=== PATIENT | female | born 1985 | race Caucasian/White ===

== ENCOUNTER 2020-08-26 15:26 | Emergency (ER) | payer BC, OTHER ==
[2020-08-26 21:10] LABS: HEMOGLOBIN 15.3 gm/dl (12.3-15.3); RED BLOOD COUNT 4.96 M/UL (4.00-5.10); WHITE BLOOD COUNT 9.8 K/UL (4.5-11.0)
[2020-08-26 22:17] LABS: BUN/CREATININE RATIO 16 (0-10)
[2020-08-26] MEDS ORDERED: IBUPROFEN600 MG PO (23:58)
[2020-08-26] MEDS ORDERED: BACTRIM DS TAB1 EACH PO (23:58)
[2020-08-26] MEDS ORDERED: CEPHALEXIN500 MG PO (23:58)
[2020-08-28] MEDS ORDERED: CIPRO500 MG PO (11:44)
[2020-08-28] MEDS ORDERED: DIFLUCAN150 MG PO (11:45)
== END 2020-08-27 00:38 | disposition home or self-care (01) ==
LOC: ER1 15:26
PROVIDERS: Emergency Medicine
DX: M79.621 Pain in right upper arm (principal); M79.89 Other specified soft tissue disorders
CPT/HCPCS: 73060; 80053; 82550; 82553; 83874; 84484; 85025; 85379; 93005; 93931; 93971; 96372; 99284; J1885

== ENCOUNTER 2020-08-29 22:31 | Inpatient (IN) | payer BC, OTHER ==
[~2020-08-29] VITALS: Ht 177.8 cm; Wt 106.1 kg
[~2020-08-29 22:31] MED LIST: BACTRIM DS TAB1 EACH PO; CEPHALEXIN500 MG PO; CIPRO500 MG PO; DIFLUCAN150 MG PO; IBUPROFEN600 MG PO
[2020-08-30 01:12] LABS: HEMOGLOBIN 14.3 gm/dl (12.3-15.3); RED BLOOD COUNT 4.64 M/UL (4.00-5.10); WHITE BLOOD COUNT 8.1 K/UL (4.5-11.0)
[2020-08-30 02:00] LABS: BUN/CREATININE RATIO 21 (0-10)
[2020-08-30] MEDS ORDERED: ASPIRIN EC81 MG PO (11:44)
[2020-08-30] MEDS ORDERED: IBU800 MG PO (11:45)
[2020-08-30] MEDS ORDERED: CARAFATE1 GM PO (11:49)
[2020-08-30] MEDS ORDERED: VOLTAREN ARTHRI20 GM TOP (11:50)
[2020-08-30] MEDS ORDERED: ZANAFLEX2 MG PO (11:50)
[2020-08-30] MEDS ORDERED: NEURONTIN100 MG PO (11:51)
[2020-08-30] MEDS ORDERED: ZYRTEC10 MG PO (11:51)
[2020-08-30] MEDS ORDERED: MIRALAX17 GM PO (11:52)
[2020-08-30] MEDS ORDERED: FIBER SELECT G1 EACH PO (11:52)
[2020-08-30] MEDS ORDERED: FLOMAX 0.4 MG0.4 MG PO (11:53)
[2020-08-30] MEDS ORDERED: FLONASE ALLER15.8 ML (11:53)
[2020-08-31 03:39] LABS: HEMOGLOBIN 13.5 gm/dl (12.3-15.3); RED BLOOD COUNT 4.47 M/UL (4.00-5.10)
[2020-08-31 03:45] LABS: WHITE BLOOD COUNT 5.7 K/UL (4.5-11.0)
[2020-08-31 04:10] LABS: BUN/CREATININE RATIO 16 (0-10)
[2020-09-01 07:24] LABS: HEMOGLOBIN 13.2 gm/dl (12.3-15.3); RED BLOOD COUNT 4.35 M/UL (4.00-5.10); WHITE BLOOD COUNT 6.1 K/UL (4.5-11.0)
[2020-09-01 07:49] LABS: BUN/CREATININE RATIO 14 (0-10)
[2020-09-02 07:12] LABS: BUN/CREATININE RATIO 14 (0-10)
[2020-09-02] MEDS ORDERED: AUGMENTIN 875-1 EACH PO (13:03)
[2020-09-02] MEDS ORDERED: BACTRIM DS TAB1 EACH PO (13:12)
--- NOTE | 2020-09-02 14:46 | NUR ---
PT LEAVING AT THIS TIME
== END 2020-09-02 15:00 | disposition home or self-care (01) | DRG 914 ==
LOC: ER1 22:31 → CDU 08-30 02:02 → MED SURG 4 08-30 02:02
PROVIDERS: Family Medicine; Internal Medicine; ADMIT Internal Medicine
DX: S46.992A Other injury of unspecified muscle, fascia and tendon at shoulder and upper arm level, left arm, initial encounter (principal); L03.114 Cellulitis of left upper limb; K63.5 Polyp of colon; X58.XXXA Exposure to other specified factors, initial encounter; K44.9 Diaphragmatic hernia without obstruction or gangrene; Z90.49 Acquired absence of other specified parts of digestive tract; Z83.3 Family history of diabetes mellitus; Z82.49 Family history of ischemic heart disease and other diseases of the circulatory system; Z82.3 Family history of stroke
CPT/HCPCS: 36415; 73201; 73220; 80048; 80053; 81001; 82550; 82553; 83605; 83735; 84703; 85025; 85027; 85652; 86140; 87040; 93971; 96365; 99284; A9577; J1650; J2020; J2270; J2543; J2550; J3370; J7030; J7070; Q9967; U0002

== ENCOUNTER → 2022-02-12 | Outpatient (CLI) | payer BC ==
[~2022-02-12] MED LIST changes: +ASPIRIN EC81 MG PO; +AUGMENTIN 875-1 EACH PO; +BUSPIRONE HCL5 MG PO; +CARAFATE1 GM PO; +CYCLOBENZAPRINE10 MG PO; +FIBER SELECT G1 EACH PO; +FLOMAX 0.4 MG0.4 MG PO; +FLONASE ALLER15.8 ML; +IBU800 MG PO; +MIRALAX17 GM PO; +NAPROSYN500 MG PO; +NEURONTIN100 MG PO; +TORADOL 10 MG T10 MG PO; +VOLTAREN ARTHRI20 GM TOP; +ZANAFLEX2 MG PO; +ZYRTEC10 MG PO
== END ==
LOC: RAD 17:00
DX: R07.89 Other chest pain (principal)
CPT/HCPCS: 71046

== ENCOUNTER 2022-02-14 17:28 | Emergency (ER) | payer BC ==
[~2022-02-14 17:28] MED LIST changes: -BUSPIRONE HCL5 MG PO; -NAPROSYN500 MG PO
[2022-02-14 18:27] LABS: HEMOGLOBIN 13.4 gm/dl (12.3-15.3); RED BLOOD COUNT 4.39 M/UL (4.00-5.10); WHITE BLOOD COUNT 8.2 K/UL (4.5-11.0)
[2022-02-14 19:00] LABS: BUN/CREATININE RATIO 15 (0-10)
[2022-02-14] MEDS ORDERED: NAPROSYN500 MG PO (21:59)
[2022-02-14] MEDS ORDERED: BUSPIRONE HCL5 MG PO (21:59)
== END 2022-02-14 22:20 | disposition home or self-care (01) ==
LOC: ER1 17:28
PROVIDERS: Physician Assistant
DX: R07.89 Other chest pain (principal); R06.02 Shortness of breath; Z86.16 Personal history of COVID-19; Z88.1 Allergy status to other antibiotic agents
CPT/HCPCS: 71045; 80053; 82550; 82553; 83690; 84484; 85025; 85379; 93005; 96374; 99285; J1885

== ENCOUNTER → 2022-02-18 | Outpatient (CLI) | payer BC ==
[~2022-02-18] MED LIST changes: +BUSPIRONE HCL5 MG PO; +NAPROSYN500 MG PO
== END ==
LOC: MRI 16:06
DX: R41.3 Other amnesia (principal)
CPT/HCPCS: 70553; A9577